=== PATIENT | female | born 1995 | race Caucasian/White ===

== ENCOUNTER 2020-11-16 02:03 | Emergency (ER) | payer OTHER ==
[2020-11-16 02:10] VITALS: BP 128/56; PULSE 85; TEMP 98; BMI 28.0
[2020-11-16] MEDS ORDERED: ACETAMINOPHEN 500 MG TABLET (FP) PO ONE (02:28)
[2020-11-16] MEDS ORDERED: ACETAMINOPHEN 500 MG TABLET (FP) ONE (02:40)
[2020-11-16 03:34] LABS: BASO % 0.5 % (0-2.0); EOS % 1.4 % (0-4.5); HEMATOCRIT 36.1 % (32.4-45.2); HEMOGLOBIN 12.3 GM/dL (10.7-15.3); LYMPH % 27.9 % (8-40); MCH 30.4 pg (25.7-33.7); MEAN CELL VOLUME 89.5 fl (80-96); MEAN PLT VOLUME 8.8 fl (7.5-11.1); MONO % 7.4 % (3.8-10.2); NEUT % 62.8 % (42.8-82.8); PLATELET COUNT 301 K/MM3 (134-434); RBC 4.03 M/mm3 (3.60-5.2); RDW 13.8 % (11.6-15.6); WHITE BLOOD COUNT 10.5 K/mm3 (4.0-10.0)
[2020-11-16 03:36] LABS: URINE APPEARANCE CLEAR; URINE BILIRUBIN NEGATIVE (NEGATIVE); URINE COLOR YELLOW; URINE GLUCOSE (UA) NEGATIVE (NEGATIVE); URINE KETONE NEGATIVE (NEGATIVE); URINE LEUK ESTERASE NEGATIVE (NEGATIVE); URINE NITRITE NEGATIVE (NEGATIVE); URINE PROTEIN NEGATIVE (NEGATIVE); URINE UROBILINOGEN 0.2 mg/dL (0.2-1.0)
[2020-11-16 03:53] LABS: ALBUMIN 3.6 g/dl (3.4-5.0); BLOOD UREA NITROGEN 13.1 mg/dL (7-18); CALCIUM 9.1 mg/dL (8.5-10.1)
[2020-11-16 03:57] LABS: CREATININE 0.4 mg/dL (0.55-1.3)
[2020-11-16 03:58] LABS: BILIRUBIN,TOTAL 0.2 mg/dL (0.2-1)
== END 2020-11-16 04:36 | disposition home or self-care (01) ==
LOC: FER 02:03
DX: O20.8 Other hemorrhage in early pregnancy (principal); R10.9 Unspecified abdominal pain
CPT/HCPCS: 36415; 76830-TC; 80053; 81003; 84702; 85025; 86850; 86900; 86901; 87086; 99284-25